=== PATIENT | male | born 1950 | race Caucasian/White ===

== ENCOUNTER → 2016-11-05 | Outpatient (CLI) | payer MEDICARE ==
[~2016-11-05] MED LIST: ALBU17AE23 INH; ASP325T PO; ASP81TEC PO; CEPH-38 PO; CITA20TA4 PO; CLPD75T PO; CRESTOR40 MG PO; CYAN100053 IJ; CYPR4TAB GT; CYPROHEPTADINE HCL PO; DESI25TA PO; DIPH25CA6 PO; DVL250TEC1; FENO145T2 PO; FERR-57 PO; GABA-488 PO; GLYB5TAB3 PO; HUM100VI4 SQ; IBUP400T22 PO; INSU100C4 SQ; INSU100I14 SQ; LAMO200T2 PO; LANS30CA PO; LISI40TA PO; LORA0.5T34 GT; LOVASA PO; LSNP10T PO; LSNP20T PO; LVF500T PO; LVT.1T PO; METFOR850T PO; METO100T2 PO; METO25TA2 PO; MTR500T PO; MULT-963 PO; NF-LOVAZAC PO; NTR.4SL PO; OMEP-10; PARO40TA2 PO; PRD10T PO; RANI300T4 PO; REGADENOSON 0.4 MG/5 ML SYR (LEXISCAN) IV ONE; RNT150T PO; ROSU20TA14 PO; VENL75TA74 PO; VNL37.5T PO
[2016-11-05] MEDS: CATHETER FLUSH 10 ML SYR IV PRN ×2 (11:28→13:02)
[2016-11-05 13:01] VITALS: BP 17/88
--- NOTE | 2016-11-06 01:22 | STRESS TEST ---
DATE OF SERVICE: 11/05/2016 REPORT TITLE: LEXISCAN MYOVIEW STRESS TEST REPORT Baseline heart rate is 96. Baseline blood pressure 170/88. Baseline EKG is sinus rhythm with no ischemic changes. In summary, the patient was injected with 10.97 mCi of technetium-99 Myoview and the resting images were obtained. Then, the patient received 0.4 mg of Lexiscan followed by 30.4 mCi of technetium-99 Myoview. Throughout the test, there were no EKG changes. The resting and stress images were reviewed and compared in the short axis, horizontal long axis, and vertical long axis views. Review of the images showed reversible ischemia involving the mid to apical inferior wall, inferolateral wall. SSS is 13, SDS 7, TID value 0.98. On the gated images, the left ventricle appeared to be in normal size with diffuse left ventricular hypokinesia, calculated ejection fraction 46%. CONCLUSION: 1. The patient tolerated Lexiscan well. 2. Diaphragmatic attenuation with reversible ischemia involving the mid to apical inferior wall and inferolateral segment. 3. Normal left ventricular size with mild diffuse left ventricular hypokinesia, calculated ejection fraction 46%. Job ID: [id number] DocumentID: [id number] Dictated Date: 11/05/2016 17:37:36 Agriculture Professor Date: 11/05/2016 23:39:08 Dictated By: SIERRA LEMA MD
== END ==
LOC: CARD 10:36
PROVIDERS: ATTEND Physician Assistant
DX: I71.4 Abdominal aortic aneurysm, without rupture (principal); I25.10 Atherosclerotic heart disease of native coronary artery without angina pectoris; I65.23 Occlusion and stenosis of bilateral carotid arteries; I10 Essential (primary) hypertension
CPT/HCPCS: 78452; 93017; 93306

== ENCOUNTER 2016-11-12 06:42 | Day surgery (SDC) | payer MEDICARE ==
[2016-11-12] VITALS (14 sets, daily range): BP systolic 119–193; BP diastolic 68–103
[~2016-11-12] VITALS: Ht 170.2 cm; Wt 97.1 kg
[~2016-11-12 06:42] MED LIST changes: -REGADENOSON 0.4 MG/5 ML SYR (LEXISCAN) IV ONE
[2016-11-12] MEDS ORDERED: NS IV 1000 ML 1,000 ML ONE ×2 (06:58→08:20)
[2016-11-12] MEDS ORDERED: HEParin (CATH LAB) 2,000 ML IV ONE (06:58)
[2016-11-12] MEDS: NS IV 1000 ML 1,000 ML IV SCH ×2 (07:28→08:41)
[2016-11-12 07:35] LABS: BILIRUBIN,URINE NEGATIVE (NEGATIVE); KETONES,URINE 2+ (NEGATIVE); LEUKOCYTE ESTERASE ,URINE NEGATIVE (NEGATIVE); MEAN PLATELET VOLUME 9.9 FL (7.4-10.4); NITRITE,URINE NEGATIVE (NEGATIVE); PH,URINE 6 (5-9); PROTEIN,URINE 3+ (NEGATIVE); RED BLOOD COUNT 5.78 10^6/uL (4.35-5.85); UROBILINOGEN,URINE NORMAL (NORMAL); WHITE BLOOD COUNT 7.2 10^3/uL (4.3-11.0)
[2016-11-12] MEDS ORDERED: CYPR4TAB PO (07:40)
[2016-11-12] MEDS ORDERED: GABA-488 PO (07:42)
[2016-11-12] MEDS ORDERED: DESI25TA13 PO (07:42)
[2016-11-12 07:44] LABS: INR 0.9 (0.8-1.4); PROTHROMBIN TIME PATIENT 12.7 SEC (12.2-14.7)
[2016-11-12] MEDS ORDERED: VNL75T PO (07:46)
[2016-11-12] MEDS ORDERED: VNL37.5T PO (07:46)
[2016-11-12] MEDS ORDERED: METF500T4 PO (07:46)
[2016-11-12 07:49] LABS: SQUAMOUS EPITHELIAL CELL,UR 0-2 /HPF
[2016-11-12 07:54] LABS: ALBUMIN 4.8 GM/DL (3.2-4.5); BILIRUBIN,TOTAL 0.5 MG/DL (0.1-1.0); CALCIUM 10.6 MG/DL (8.5-10.1); CREATININE SERUM 1.45 MG/DL (0.60-1.30); POTASSIUM 4.2 MMOL/L (3.6-5.0); TOTAL PROTEIN 8.1 GM/DL (6.4-8.2)
--- NOTE | 2016-11-12 07:54 | Diagnostic Imaging Report ---
Portable AP chest at 727 hours. INDICATION: Preop heart catheter. FINDINGS: Heart size is within normal limits and stable when compared to 07/28/14. The lungs are clear. There is no sign of failure, pneumonia or pleural effusion to suggest an acute abnormality. The calcified nodes in the right hilum seen previously are again evident and no different. The mediastinum is not widened. The osseous structures are intact. IMPRESSION: There is no evidence for active disease. When compared to the prior study, there has been no significant change. Dictated by: Dictated on workstation # [id number]
[2016-11-12] MEDS ORDERED: CETI10TA17 PO (07:55)
[2016-11-12] MEDS ORDERED: CYAN100088 PO (07:55)
[2016-11-12] MEDS ORDERED: LISI40TA PO (07:55)
[2016-11-12] MEDS ORDERED: MELO7.5T46 PO (07:55)
[2016-11-12] MEDS ORDERED: LORA0.5T PO (07:55)
[2016-11-12] MEDS ORDERED: DIPH25CA6 PO (07:55)
[2016-11-12] MEDS ORDERED: LANS15CA5 PO (08:02)
[2016-11-12] MEDS ORDERED: CHOL10008 PO (08:04)
[2016-11-12] MEDS ORDERED: MIDAZOLAM 5 MG/5 ML (VERSED) VIAL ONE (08:05)
[2016-11-12] MEDS ORDERED: fentaNYL INJECTION 100 MCG/2 ML AMP ONE (08:06)
[2016-11-12] MEDS ORDERED: INSU100V16 SQ (08:08)
--- NOTE | 2016-11-12 08:10 | Cardiac Procedure Note-CS/ASA ---
Pre-Procedure Note Pre-Op Procedure Note H&P Reviewed The H&P was reviewed, patient examined and no changes noted. Date H&P Reviewed: Nov 12, 2016 Time H&P Reviewed: 08:10 Conscious Sedation Pre-Proced Time Reviewed: 08:10 ASA Class: 3 Airway Mallampati Classification: (manzanita appropriate class) I. II. III, IV Lungs Heart ASA score ASA 1: a normal healthy patient ASA 2: a patient with a mild systemic disease (mid diabetes, controlled hypertension, obesity x ASA 3: a patient with a severe systemic disease that limits activity (angina , COPD, prior Myocardial infarction) ASA 4: a patient with an incapacitating disease that is a constant threat to life (CHF, renal failure) ASA 5: a moribund patient not expected to survive 24 hrs. (ruptured aneurysm) ASA 6: a declared brain patient whose organs are being harvested. For emergent operations, add the letter E after the classification Grade 3 Sedation Plan: Analgesia, Amnesia, Plan communicated to team members, Discussed options with patient/fam, Discussed risks with patient/fam Note The patient is an appropriate candidate to undergo the planned procedure, sedation, and anesthesia. The patient immediately re-assessed prior to indication. SIERRA LEMA MD Nov 12, 2016 08:10
[2016-11-12] MEDS ORDERED: NS IV 1000 ML 1,000 ML IV SCH (09:22)
--- NOTE | 2016-11-12 09:24 | Discharge Inst-Post CATH ---
Discharge Inst-CATH Post Cardiac Cath D/C Inst Follow Up/Plan Hold Metformin for [address] Carreno's office in 2-4 weeks CARDIAC CATH DISCHARGE INSTRUCTIONS *Hold Metformin for 48 hours post heart cath. ACTIVITY * Go Home directly and rest. * Limit activity of the leg (or wrist if it was used) for 7 days including aerobics, swimming, jogging, bicycling, etc. * Restrict stair-climbing for 7 days if possible, if not, climb up with your non -cath leg, then bring together on the same step. * Avoid lifting, pushing, pulling or excessive movement of the affected extremity for 7 days. * Customary sexual activity may be resumed after 2 days-use caution not to use a position that strains or causes pain to the affected extremity. * No driving for 24 hours. * NO SMOKING. * Avoid straining for bowel movements for 7 days. * Gentle walking on level ground is allowed. * Returning to work will depend on the type of procedure and the results. Your doctor will discuss this with you. CALL YOUR DOCTOR FOR ANY OF THE FOLLOWING: *If bleeding from the puncture site occurs- Apply gentle pressure to site with clean cloth and call your doctor or EMS. * If a knot or lump forms under the skin, increases in size, or causes pain. * If bruising appears to be worsening or moving further down your leg instead of disappearing. * Temperature above 101 F. CARE OF YOUR GROIN INCISION; * Bruising or purple discoloration of the skin near the puncture site is common. * You may shower only, no bathtub bathing for 5 days. Be careful to avoid slipping as your leg may feel stiff. * If a closure device was used on your femoral artery, please see the attached guide regarding care of the device and your leg. * REMOVE the dressing from your groin the next day after your procedure in the shower. CARE OF YOUR WRIST INCISION; * Bruising or purple discoloration of the skin near the puncture site is common. * You may shower. * DO NOT submerge wrist. * Remove dressing in 24 hours. SIERRA CARRENO MD Nov 12, 2016 09:24
[2016-11-12] MEDS ORDERED: PATIENT MAY USE OWN MEDS, ALL PO SCH (09:30)
--- NOTE | 2016-11-12 09:31 | Cardiac Cath Report ---
Cardiac Cath Report Physician (s)/Digital Business Analyst (s) Physician SIERRA LEMA MD Pre-Procedure Diagnosis Pre-Procedure Diagnosis: CAD Post-Procedure Note Procedure Start Date: Nov 12, 2016 Procedure Start Time: 08:40 Name of Procedure: LHC, Abd aortogram, right lower extremity runoff Findings/Procedure Note PROCEDURE NOTE: After explaining the procedure to the patient, all pros and cons were explained, all questions were answered. The patient signed the consent and then she was placed on the cardiac catheterization laboratory. The patient was placed on the cardiac catheterization laboratory. Groin was prepped SL fashion local anesthesia was used. Sheath placed in the right groin with difficulties, the first attempt has failed , I attempted on the left groin without success return to the right groin, I was able to access the artery but had significant difficulties advancing the sheath, I used a long stork wire so far the procedure Crista right and left catheter were used to access the coronary system. Pigtail was used to access the left ventricular cavity. Left ventriculogram was not done to limit contrast exposure Abdominal aortogram was done to evaluate the aneurysm and the stent I did run of through the sheath with his mixing contrast and saline 50/50 and injecting 5 mL of contrast through the sheath and ran it down to the trifurcation At the end of the procedure the sheath was removed, manual pressure applied FINDINGS: Hemodynamics LV 160/15, end-diastolic pressure of 15 Aorta 158/75 mean of 110 ANATOMY: Left Main has mild calcification with normal structures disease Left Anterior Descending , is patent with small vessel disease distally, constipation at the mid LAD probably representing the old stent with mild instent restenosis Left Circumflex , has mild disease nonobstructive disease Right Coronory Artery has patent stent, proximally there is 50 percent stenosis , distally there is 50-60 percent stenosis with small vessel disease distally, medical therapy is recommended LV Gram was not done to limit contrast exposure Aorta evaluation with a pigtail catheter just above the abdominal aortic aneurysm stent, did not show significant abnormality stent is patent with good flow distally, origin of the renal arteries appeared to be normal, bifurcation is normal. Right lower extreme. Runoff done through the sheath with limited amount of contrast, there is mild catheter score to disease down to the trifurcation, brisk flow, no significant obstructive disease CONCLUSION: 1. Patent stent in the right coronary artery with 50 percent stenosis of the proximal right coronary artery 5060 percent stenosis of the distal right coronary artery, small vessel disease distally, nonobstructive disease 2. Patent stent in the mid LAD with calcification with mild in-stent restenosis , mild atherosclerotic disease nonobstructive disease 3. Mild disease in the circumflex artery nonobstructive disease 4. No left ventricular gram was done 5. History of abdominal aortic aneurysm with stent in the abdominal aorta and the bifurcating iliac appeared to be patent, no significant abnormality was noted, limited amount of contrast was used during the angiogram 6. Runoff of the right lower except he was done through the sheath which showed mild disease with brisk flow down to the trifurcation DISCUSSION AND RECOMMENDATION: Medical therapy is recommended no intervention is warranted Anesthesia Type: Conscious Sedation Estimated blood loss (mL): 50 ml Contrast Amount: 58 ml Total Radiation Dose: 748 mGy Post-Procedure Diagnosis Post-operative diagnosis: Coronary artery disease Peripheral arterial disease Abdominal aortic aneurysm Hypertension Diabetes mellitus SIERRA LEMA MD Nov 12, 2016 09:31
--- NOTE | 2016-11-12 09:32 | Clinic Account Progress/Dx ---
Clinic Account Progress/Dx DIAGNOSIS: Date Seen by Provider: Nov 12, 2016 Time Seen by Provider: 09:32 Diagnosis Coronary artery disease Peripheral arterial disease Abdominal aortic aneurysm Hypertension Diabetes mellitus SIERRA LEMA MD Nov 12, 2016 09:32
[2016-11-12] MEDS ORDERED: inSUlin (REGULAR) HUMAN 1 UNIT/0.01 ML (CHARGE PER UNIT) ONE (10:08)
[2016-11-12] MEDS ORDERED: meTOprolol 5 MG/5 ML (LOPRESSOR) VIAL IV ONE (14:30)
== END 2016-11-12 14:50 | disposition home or self-care (01) ==
LOC: CATH 06:42
PROVIDERS: ATTEND Internal Medicine Cardiovascular Disease
DX: I25.10 Atherosclerotic heart disease of native coronary artery without angina pectoris (principal); I71.4 Abdominal aortic aneurysm, without rupture; I70.201 Unspecified atherosclerosis of native arteries of extremities, right leg; I10 Essential (primary) hypertension; E11.9 Type 2 diabetes mellitus without complications; I35.8 Other nonrheumatic aortic valve disorders; E78.2 Mixed hyperlipidemia; F41.8 Other specified anxiety disorders; Z95.820 Peripheral vascular angioplasty status with implants and grafts; Z95.5 Presence of coronary angioplasty implant and graft; Z79.4 Long term (current) use of insulin; Z79.899 Other long term (current) drug therapy; Z87.891 Personal history of nicotine dependence
CPT/HCPCS: 36415; 71010; 75625; 75710; 80053; 80061; 81000; 82962; 85027; 85610; 85730; 87081; 93005; 93458

== ENCOUNTER 2017-09-03 04:25 | Inpatient (IN) | payer MEDICARE ==
[2017-09-03] VITALS (20 sets, daily range): BP systolic 135–197; BP diastolic 72–101
[~2017-09-03] VITALS: Ht 167.6 cm; Wt 90.5 kg
[~2017-09-03 04:25] MED LIST changes: +CETI10TA17 PO; +CHOL10008 PO; +CYAN100088 PO; +CYCL5TAB PO; +CYPR4TAB PO; +DESI25TA13 PO; +HYDR-3812 PO; +INSU100V16 SQ; +LANS15CA5 PO; +LORA0.5T PO; +MELO7.5T46 PO; +METF500T5 PO; +VNL75T PO
[2017-09-03] MEDS ORDERED: RT-ALBUTEROL/IPRATROPIUM 3 ML (DUONEB) VIAL INH ONE ×2 (04:30→05:00)
[2017-09-03] MEDS ORDERED: methylPREDNISolone 125 MG (Solu-MEDROL) VIAL IVP ONE (04:30)
[2017-09-03 04:40] LABS: BASOPHILS # (AUTO) 0.1 10^3/uL (0.0-0.1); BASOPHILS % (AUTO) 1 % (0-10); EOSINOPHILS # (AUTO) 0.3 10^3/uL (0.0-0.3); EOSINOPHILS % (AUTO) 3 % (0-10); HEMATOCRIT 34 % (40-54); HEMOGLOBIN 10.9 G/DL (13.3-17.7); LYMPHOCYTES % (AUTO) 29 % (12-44); MEAN CORPUSCULAR HEMOGLOBIN 24 PG (25-34); MEAN CORPUSCULAR HGB CONC 32 G/DL (32-36); MEAN CORPUSCULAR VOLUME 75 FL (80-99); MEAN PLATELET VOLUME 10.2 FL (7.4-10.4); MONOCYTES # (AUTO) 0.7 X 10^3 (0.0-1.0); MONOCYTES % (AUTO) 7 % (0-12); NEUTROPHILS # (AUTO) 6.3 X 10^3 (1.8-7.8); NEUTROPHILS % (AUTO) 61 % (42-75); PLATELET COUNT 376 10^3/uL (130-400); RED BLOOD COUNT 4.53 10^6/uL (4.35-5.85); RED CELL DISTRIBUTION WIDTH 19.7 % (10.0-14.5); WHITE BLOOD COUNT 10.3 10^3/uL (4.3-11.0)
--- NOTE | 2017-09-03 04:51 | ED General ---
General Chief Complaint: Respiratory Problems Stated Complaint: SOB Nursing Triage Note: pt brought in by ems with complaint of sob. per ems, pts initial sat was 73%. pt diaphoretic upon arrival Nursing Sepsis Screen: No Definite Risk Source of Information: Patient, Old Records Exam Limitations: No Limitations History of Present Illness Date Seen by Provider: Sep 03, 2017 Time Seen by Provider: 04:26 Initial Comments This 67-year-old gentleman presents to the emergency room via EMS in respiratory distress. He has been ill for the past couple of days with dyspnea and increased cough. He denies any fever. He has history of coronary artery disease as well as COPD. EMS reported patient has history of CHF but patient denies any knowledge of CHF. He has an albuterol inhaler but denies any other inhaled medications or nebulizer treatments at home. EMS reported his oxygen saturation on room air was 76 percent. They met him in his vehicle in route to the hospital. EMS reports oxygen saturation improved with high flow oxygen and CPAP up to 85 percent. His oxygen saturation is 80 percent on room air while being transferred over to the ER bed and high flow oxygen. Patient denied any chest pain. Allergies and Home Medications Allergies Coded Allergies: niacin (Unverified Adverse Reaction, Mild, RASH, 07/28/14) Pt stated he got a rash and got flushed feeling. Home Medications Albuterol 17 Gm Aerosol, 17 GM INH BID PRN, (Reported) PRN SOB Aspirin 81 Mg Tabec, 81 MG PO DAILY, (Reported) Cetirizine HCl 10 Mg Tablet, 10 MG PO DAILY PRN for CONGESTION, (Reported) Cholecalciferol (Vitamin D3) 1,000 Unit Tab.chew, 1,000 UNIT PO DAILY, (Reported ) Clopidogrel 75 Mg Tablet, 75 MG PO DAILY, (Reported) Cyanocobalamin (Vitamin B-12) 1,000 Mcg Tablet, 1,000 MCG PO DAILY, (Reported) Cyclobenzaprine HCl 5 Mg Tablet, 5 MG PO TID PRN for SPASMS Prescribed by: SUPRIYA JONES on 07/31/17 0300 Cyproheptadine HCl 4 Mg Tablet, 12 MG PO HS, (Reported) Desipramine HCl 25 Mg Tablet, 25 MG PO BID, (Reported) Diphenhydramine HCl 25 Mg Capsule, 25 MG PO PRN PRN for SLEEP, (Reported) Fenofibrate,Micronized 145 Mg Tablet, 145 MG PO DAILY, (Reported) Gabapentin 300 Mg Capsule, 600 MG PO HS, (Reported) Hydrocodone/Acetaminophen 1 Each Tablet, 1 EACH PO Q6H PRN for PAIN-MODERATE TO SEVERE Prescribed by: SUPRIYA JONES on 07/31/17 0300 Insulin Aspart 100 Unit/1 Ml Insuln.pen, 32 UNIT SQ DAILY IN AM, (Reported) 32 UNITS SQ WITH BREAKFAST Insulin Aspart 100 Unit/1 Ml Susp, 27 UNIT SQ BID, (Reported) Insulin Glargine,Hum.rec.anlog 300 Units/3 Ml Soln, 40 UNITS SQ BID, (Reported) 40 UNITS SQ IN THE MORNING AND EVENING Lamotrigine 200 Mg Tablet, 100 MG PO BID, (Reported) TAKE ONE-HALF (200 MG) TABLET BY MOUTH TWO TIMES A DAY Lansoprazole 15 Mg Capsule.dr, 15 MG PO DAILY, (Reported) Levothyroxine Sodium 100 Mcg Tablet, 100 MCG PO DAILY, (Reported) Lisinopril 40 Mg Tablet, 40 MG PO DAILY, (Reported) Lorazepam 0.5 Mg Tablet, 0.5 MG PO BID PRN for ANXIETY, (Reported) Meloxicam 7.5 Mg Tablet, 7.5 MG PO DAILY, (Reported) Metoprolol Tartrate 100 Mg Tablet, 50 MG PO BID, (Reported) TAKE ONE-HALF TABLET (100 MG) BY MOUTH TWO TIMES A DAY Multivitamin 1 Each Tablet, 1 EACH PO DAILY, (Reported) [place]-3 Acid Ethyl Esters 1 Gm Capsule, 2,000 GM PO BID WITH MEALS, (Reported) Ranitidine Hcl 300 Mg Tablet, 300 MG PO BID, (Reported) Rosuvastatin Calcium 40 Mg Tablet, 20 MG PO HS, (Reported) TAKE ONE-HALF (40 MG) TABLET BY MOUTH AT BEDTIME Venlafaxine HCl 37.5 Mg Tab, 37.5 MG PO DAILY, (Reported) Venlafaxine HCl 75 Mg Tab, 75 MG PO DAILY, (Reported) Patient Home Medication List Home Medication List Reviewed: Yes Review of Systems Constitutional: no symptoms reported EENTM: no symptoms reported Respiratory: see HPI Cardiovascular: no symptoms reported Gastrointestinal: no symptoms reported Genitourinary: no symptoms reported Musculoskeletal: no symptoms reported Skin: no symptoms reported Psychiatric/Neurological: No Symptoms Reported Hematologic/Lymphatic: No Symptoms Reported Immunological/Allergic: no symptoms reported Past Bftxbcn-Dvfdeh-Lbwrqr Hx Past Med/Social Hx: Reviewed and Corrections made Patient Social History Alcohol Use: Denies Use Recreational Drug Use: No Smoking Status: Former Smoker Type Used: Cigarettes Former Smoker, Quit: Nov 12, 2004 Recent Foreign Travel: No Contact w/Someone Who Travel: No Recent Infectious Disease Expo: No Recent Hopitalizations: Yes Immunizations Up To Date Tetanus Booster (TDap): Unknown PED Vaccines UTD: Yes Date of Pneumonia Vaccine: Mar 31, 2011 Date of Influenza Vaccine: Feb 06, 2012 Past Medical History Surgeries: Yes (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 sinus surger) Coronary Stent Respiratory: Yes COPD Cardiac: Yes (2 heart attacks, heart caths-6 stents) Coronary Artery Disease, High Cholesterol, Hypertension Neurological: Yes Neuropathy Reproductive Disorders: No Sexually Transmitted Disease: No HIV/AIDS: No Gastrointestinal: Yes Hiatal Hernia Musculoskeletal: Yes Arthritis Endocrine: Yes Diabetes, Insulin dep, Hypothyroidsim Cataract Loss of Vision: Denies Hearing Impairment: Denies Cancer: No Psychosocial: Yes (flash backs) PTSD Integumentary: Yes (tick bites on stomach and legs) Recent Skin Changes Blood Disorders: Yes Family Medical History FH: defects G8 BROTHER (age-40) Myocardial infarction 18 FATHER, Onset:40's - 50 G8 BROTHER, Onset:50's - 60 Narcolepsy G8 BROTHER Physical Exam Vital Signs Vital Signs - First Documented 09/03/17 04:27 Pulse 96 Resp 32 B/P (MAP) 206/117 (146) Pulse Ox 80 O2 Delivery NIV Bilevel O2 Flow Rate 15.00 FiO2 60 Capillary Refill : Less Than 3 Seconds General Appearance: WD/WN, Mild Distress HEENT: PERRL/EOMI, Normal ENT Inspection Neck: Normal Inspection Respiratory: Accessory Muscle Use, Respiratory Distress, Other (coarse "wet" breath sounds throughout) Cardiovascular: Regular Rate, Rhythm, No Edema, No Murmur Gastrointestinal: Normal Bowel Sounds, Non Tender, Soft Extremity: Normal Capillary Refill, Normal Inspection, No Pedal Edema Neurologic/Psychiatric: Alert, Oriented x3, No Motor/Sensory Deficits, Normal Mood/Affect, school superintendent II-XII Norm as Tested Skin: Normal Color, Warm/Dry Focused Exam Lactate Level 09/03/17 04:32: Lactic Acid Level 7.65*H Lactic Acid Level Laboratory Tests Test 09/03/17 04:32 Lactic Acid Level 7.65 MMOL/L (0.50-2.00) *H Progress/Results/Core Measures Suspected Sepsis Recent Fever Within 48 Hours: No Infection Criteria Present: None New/Unexplained Altered Menta: No Sepsis Screen: No Definite Risk SIRS Temperature: Pulse: 81 Respiratory Rate: 25 Laboratory Tests 09/03/17 04:32: White Blood Count 10.3 Blood Pressure 203 /122 Mean: 146 09/03/17 04:32: Lactic Acid Level 7.65*H Laboratory Tests 09/03/17 04:32: Creatinine 1.09, INR Comment 1.0, Platelet Count 376, Total Bilirubin 0.2 Results/Orders Lab Results Laboratory Tests Test 09/03/17 04:32 09/03/17 05:12 Range/Units White Blood Count 10.3 4.3-11.0 10^3/uL Red Blood Count 4.53 4.35-5.85 10^6/uL Hemoglobin 10.9 L 13.3-17.7 G/DL Hematocrit 34 L 40-54 % Mean Corpuscular Volume 75 L 80-99 FL Mean Corpuscular Hemoglobin 24 L 25-34 PG Mean Corpuscular Hemoglobin Concent 32 32-36 G/DL Red Cell Distribution Width 19.7 H 10.0-14.5 % Platelet Count 376 130-400 10^3/uL Mean Platelet Volume 10.2 7.4-10.4 FL Neutrophils (%) (Auto) 61 42-75 % Lymphocytes (%) (Auto) 29 12-44 % Monocytes (%) (Auto) 7 0-12 % Eosinophils (%) (Auto) 3 0-10 % Basophils (%) (Auto) 1 0-10 % Neutrophils # (Auto) 6.3 1.8-7.8 X 10^3 Lymphocytes # (Auto) 3.0 1.0-4.0 X 10^3 Monocytes # (Auto) 0.7 0.0-1.0 X 10^3 Eosinophils # (Auto) 0.3 0.0-0.3 10^3/uL Basophils # (Auto) 0.1 0.0-0.1 10^3/uL Prothrombin Time 13.6 12.2-14.7 SEC INR Comment 1.0 0.8-1.4 Activated Partial Thromboplast Time 23 L 24-35 SEC Sodium Level 136 135-145 MMOL/L Potassium Level 4.0 3.6-5.0 MMOL/L Chloride Level 99 98-107 MMOL/L Carbon Dioxide Level 19 L 21-32 MMOL/L Anion Gap 18 H 5-14 MMOL/L Blood Urea Nitrogen 19 H 7-18 MG/DL Creatinine 1.09 0.60-1.30 MG/DL Estimat Glomerular Filtration Rate > 60 BUN/Creatinine Ratio 17 Glucose Level 591 *H 70-105 MG/DL Lactic Acid Level 7.65 *H 0.50-2.00 MMOL/L Calcium Level 9.4 8.5-10.1 MG/DL Total Bilirubin 0.2 0.1-1.0 MG/DL Aspartate Amino Transf (AST/SGOT) 25 5-34 U/L Alanine Aminotransferase (ALT/SGPT) 30 0-55 U/L Alkaline Phosphatase 40 40-136 U/L Troponin I < 0.30 <0.30 NG/ML C-Reactive Protein High Sensitivity 2.01 H 0.00-0.50 MG/DL B-Type Natriuretic Peptide 532.4 H <100.0 PG/ML Total Protein 6.9 6.4-8.2 GM/DL Albumin 4.2 3.2-4.5 GM/DL Thyroid Stimulating Hormone (TSH) 3.80 0.35-4.94 UIU/ML Free Thyroxine 0.89 0.70-1.48 NG/DL Blood Gas Puncture Site R RAD Blood Gas Patient Temperature 96.0 Arterial Blood pH 7.34 *L 7.37-7.43 Arterial Blood Partial Pressure CO2 47 H 35-45 MMHG Arterial Blood Partial Pressure O2 76 L 79-93 MMHG Arterial Blood HCO3 25 23-27 MMOL/L Arterial Blood Total CO2 27.0 21.0-31.0 MMOL/L Arterial Blood Oxygen Saturation 95 94-100 % Arterial Blood Base Excess 0.1 -2.5-2.5 MMOL/L Saulo Test YES-POS Blood Gas Ventilator Setting NO Blood Gas Inspired Oxygen 60% BIPAP My Orders Orders - SUPRIYA FLETCHER MD Albuterol/Ipra Inhalation Soln (Duoneb I (09/03/17 04:30) Svn Small Volume Nebulizer (09/03/17 04:30) Methylprednisolone Sod Succ (Solu-Medrol (09/03/17 04:30) Cbc With Automated Diff (09/03/17 04:31) Comprehensive Metabolic Panel (09/03/17 04:31) Lactic Acid Analyzer (09/03/17 04:31) Blood Culture (09/03/17 04:31) Sputum Culture (09/03/17 04:31) Ua Culture If Indicated (09/03/17 04:31) Protime With Inr (09/03/17 04:31) Partial Thromboplastin Time (09/03/17 04:31) Chest 1 View, Ap/Pa Only (09/03/17 04:31) O2 (09/03/17 04:31) Saline Lock/Iv-Start (09/03/17 04:31) Saline Lock/Iv-Start (09/03/17 04:31) Vital Signs Adult Sepsis Patie Q1H (09/03/17 04:31) Remove Rings In Anticipation O (09/03/17 04:31) BNP (09/03/17 04:31) Hs C Reactive Protein (09/03/17 04:31) Troponin I (09/03/17 04:40) Thyroid Stimulating Hormone (09/03/17 04:42) Free T4 (Free Thyroxine) (09/03/17 04:42) Albuterol/Ipra Inhalation Soln (Duoneb I (09/03/17 05:00) Svn Small Volume Nebulizer (09/03/17 04:54) Insulin (Regular) Human (Humulin R (Per (09/03/17 05:15) Arterial Blood Gas (09/03/17 05:04) Ekg Tracing (09/03/17 05:04) Furosemide Injection (Lasix Injection) (09/03/17 05:15) Accucheck Stat ONCE (09/03/17 05:35) Medications Given in ED Current Medications Medications Dose Ordered Sig/Pricilla Route Start Time Stop Time Status Last Admin Dose Admin Albuterol/ Ipratropium 3 ml ONCE ONCE INH 09/03/17 04:30 09/03/17 04:32 DC 09/03/17 04:49 3 ML Albuterol/ Ipratropium 3 ml ONCE ONCE INH 09/03/17 05:00 09/03/17 05:01 DC 09/03/17 04:58 3 ML Furosemide 20 mg ONCE ONCE IVP 09/03/17 05:15 09/03/17 05:16 DC 09/03/17 05:14 20 MG Insulin Human Regular 10 unit ONCE ONCE IV 09/03/17 05:15 09/03/17 05:16 DC 09/03/17 05:14 10 UNIT Methylprednisolone Sodium Succinate 125 mg ONCE ONCE IVP 09/03/17 04:30 09/03/17 04:32 DC 09/03/17 04:39 125 MG Vital Signs/I&O 09/03/17 09/03/17 09/03/17 09/03/17 04:27 04:27 04:43 04:56 Pulse 96 81 80 Resp 32 25 28 B/P (MAP) 206/117 (146) Pulse Ox 80 99 O2 Delivery NIV Bilevel OxyMask O2 Flow Rate 15.00 FiO2 60 09/03/17 04:58 O2 Flow Rate 60.00 98.00 Capillary Refill : Less Than 3 Seconds Blood Pressure Mean: 146 Progress Note #1: Time: 04:50 Progress Note Patient was seen and examined. Respiratory therapy was immediately contacted and initiated CPAP therapy along with a DuoNeb treatment. This improved patient 's oxygen saturation to the mid 90s. Patient appeared much more comfortable and alert after starting BiPAP. Labs and x-ray are pending. Progress Note #2: Time: 05:29 Progress Note Chest x-ray was viewed. There was bilateral basilar atelectasis and probable early venous congestion noted. Patient was given Lasix 20 mg IV for treatment of suspected mild congestive failure. Patient remains on BiPAP at this time and is stable. Insulin 10 units IV was given for initial treatment of hyperglycemia. Case was reviewed with Dr. Lam who agrees with admission to the ICU. Prolonged ER stay is anticipated due to pending availability of ICU beds. Progress Note #3: Time: 06:01 Progress Note Patient received the 10 units of insulin and a fingerstick blood sugar will be repeated in about 30 minutes. Patient remained stable on BiPAP. Care of the patient was transitioned to Dr. Ramon at this time. ECG Initial ECG Impression Date: Sep 03, 2017 Initial ECG Impression Time: 05:12 Initial ECG Rate: 81 Initial ECG Rhythm: Normal Sinus Initial ECG Intervals: Normal Initial ECG Impression: Normal Comment Normal sinus rhythm with borderline nondiagnostic T-wave changes. No abnormal intervals or axis deviation. Diagnostic Imaging Diagonstic Imaging: Xray Plain Films/CT/US/NM/MRI: chest Comments Single view chest x-ray viewed by me and compared with prior. Report not yet available. There appears to be a basilar atelectasis with some mild pulmonary venous congestion. Departure Communication (Admissions) Time/Spoke to Admitting Phy: 05:10 Dr. Brewer Impression Primary Impression: Acute respiratory failure Qualified Codes: J96.01 - Acute respiratory failure with hypoxia Additional Impressions: COPD exacerbation Hyperglycemia Disposition: ADMITTED INPATIENT Condition: Improved Admissions Decision to Admit Reason: Admit from ER (General) Decision to Admit/Date: Sep 03, 2017 Time/Decision to Admit Time: 04:30 Departure-Patient Inst. Referrals: DARIO SHANKS MD (PCP) Primary Care Physician JOSE ADAME (Family) Primary Care Physician SUPRIYA FLETCHER MD Sep 03, 2017 04:51
[2017-09-03 04:53] LABS: PROTHROMBIN TIME PATIENT 13.6 SEC (12.2-14.7)
[2017-09-03 04:59] LABS: ALANINE AMINOTRANSFERASE 30 U/L (0-55); ALBUMIN 4.2 GM/DL (3.2-4.5); ALKALINE PHOSPHATASE 40 U/L (40-136); BILIRUBIN,TOTAL 0.2 MG/DL (0.1-1.0); BUN/CREATININE RATIO 17; CALCIUM 9.4 MG/DL (8.5-10.1); CARBON DIOXIDE 19 MMOL/L (21-32); CHLORIDE 99 MMOL/L (98-107); CREATININE SERUM 1.09 MG/DL (0.60-1.30); GFR ESTIMATED > 60; SODIUM 136 MMOL/L (135-145); TOTAL PROTEIN 6.9 GM/DL (6.4-8.2)
[2017-09-03 05:01] LABS: GLUCOSE 591 MG/DL (70-105)
[2017-09-03] MEDS ORDERED: inSUlin (REGULAR) HUMAN 1 UNIT/0.01 ML (CHARGE PER UNIT) IV ONE (05:15)
[2017-09-03] MEDS ORDERED: FUROSEMIDE 40 MG/4 ML INJ (LASIX) IVP ONE (05:15)
[2017-09-03 05:20] LABS: ABG BASE EXCESS 0.1 MMOL/L (-2.5-2.5); ABG OXYGEN SATURATION 95 % (94-100); ABG PCO2 47 MMHG (35-45); ABG PO2 76 MMHG (79-93); ALLENS TEST YES-POS; INSPIRED O2 60% BIPAP; VENTILATOR NO
[2017-09-03 05:20] LABS: FREE T4 (FREE THYROXINE) 0.89 NG/DL (0.70-1.48)
[2017-09-03 05:22] LABS: ABG PH 7.34 (7.37-7.43)
--- NOTE | 2017-09-03 06:18 | Diagnostic Imaging Report ---
INDICATION: Shortness of air. TECHNIQUE: Single view chest 4:49 AM. CORRELATION STUDY: 11/12/2016 FINDINGS: Heart size stable. Vasculature is increased from prior study. Additionally, there appears to be asymmetric perihilar infiltrates as well as a right infrahilar infiltrate versus edema present. Calcified perihilar granulomas. Calcification of aortic arch. IMPRESSION: 1. Development of mild vascular congestion. Perihilar and right infrahilar infiltrate versus edema. Dictated by: Dictated on workstation # [id number]
--- NOTE | 2017-09-03 08:27 | History & Physical-Hospitalist ---
History of Present Illness HPI/Chief Complaint Pt is [id number] with a PMH of COPD who presented to the ER with CC of SOB. History is somewhat limited by his BiPAP use but he was able to tell me that his symptoms started on 2 days ago. He had been using his inhaler without any improvement. He called EMS at that time who found his oxygen saturations in the 70s and placed him on High Flow NC which brought his sats up to the 80s. He ultimately necessitated BiPAP to stabilize his respiratory status. Source: patient Date Seen 09/03/17 Time Seen by Provider: 07:50 Attending Physician Darlin Brewer Pankaj K MD Referring Physician Date of Admission Sep 03, 2017 at 5:19 am Home Medications & Allergies Home Medications Reviewed patient Home Medication Reconciliation performed by pharmacy medication reconciliations skin care technician and/or nursing. Patients Allergies have been reviewed. Allergies Allergies Coded Allergies niacin (Unverified Adverse Reaction, Mild, RASH, 07/28/14) Pt stated he got a rash and got flushed feeling. Past Elmikmf-Tlrjmc-Fscojp Hx Past Med/Social Hx: Reviewed and Corrections made Patient Social History Alcohol Use: Denies Use Recreational Drug Use: No Smoking Status: Former Smoker Former Smoker, Quit: Nov 12, 2004 Type Used: Cigarettes Recent Foreign Travel: No Contact w/other who traveled: No Recent Hopitalizations: Yes Recent Infectious Disease Expo: No Immunizations Up To Date Tetanus Booster (TDap): Unknown Pediatric: Yes Date of Pneumonia Vaccine: Mar 31, 2011 Date of Influenza Vaccine: Feb 06, 2012 Past Medical History Surgeries: Coronary Stent Respiratory: COPD Cardiac: Coronary Artery Disease, High Cholesterol, Hypertension Neurological: Neuropathy Reproductive: No Sexually Transmitted Disease: No HIV/AIDS: No Gastrointestinal: Hiatal Hernia Musculoskeletal: Arthritis Endocrine: Diabetes, Insulin dep, Hypothyroidsim HEENT: Cataract Loss of Vision: Denies Hearing Impairment: Denies Psychosocial: PTSD Skin/Integumentary: Recent Skin Changes History of Blood Disorders: Yes Family History FH: defects G8 BROTHER (age-40) Myocardial infarction 19 FATHER, Onset:40's - 50 G8 BROTHER, Onset:50's - 60 Narcolepsy G8 BROTHER Review of Systems ROS-Unable to Obtain: limited somewhat by BIPAP Constitutional: No chills, No fever Respiratory: cough; No hemoptysis, No phlegm; short of breath, wheezing Cardiovascular: No chest pain, No edema, No palpitations Gastrointestinal: no symptoms reported Genitourinary: no symptoms reported, hematuria Musculoskeletal: no symptoms reported Skin: no symptoms reported Psychiatric/Neurological: No Symptoms Reported Physical Exam Physical Exam Vital Signs Vital Signs - First Documented 09/03/17 09/03/17 04:27 11:06 Temp 98.4 Pulse 96 Resp 32 B/P (MAP) 206/117 (146) Pulse Ox 80 O2 Delivery NIV Bilevel O2 Flow Rate 15.00 FiO2 60 Capillary Refill : Less Than 3 Seconds General Appearance: No Apparent Distress, Chronically ill HEENT: Other (BiPAP in place) Neck: Normal Inspection Respiratory: Decreased Breath Sounds, Respiratory Distress, Wheezing Cardiovascular: Regular Rate, Rhythm, No Murmur Gastrointestinal: Normal Bowel Sounds, Non Tender, Soft Extremity: No Calf Tenderness, Pedal Edema (trace bilateral) Neurologic/Psychiatric: Alert, Oriented x3, No Motor/Sensory Deficits, Normal Mood/Affect Skin: Normal Color, Warm/Dry; No Mottled Results Results/Procedures Labs Laboratory Tests 09/03/17 04:32 09/03/17 11:58 Patient resulted labs reviewed. Assessment/Plan Admission Diagnosis Acute Respiratory Failure Admission Status: Inpatient Order (span 2 midnights) Reason for Inpatient Admission: ICU level care, BiPAP Diagnosis/Problems Diagnosis/Problems (1) Acute respiratory failure Status: Acute Assessment & Plan: Likely due to COPD exacerbation MAT protocol Pulm consulted, appreciate recs Lactic acidosis likely due to profound hypoxia Not sepsis Received Solu-medrol Continue on prednisone Also got lasix in ER will monitor I/Os Qualifiers: Respiratory failure complication: hypoxia Qualified Codes: J96.01 - Acute respiratory failure with hypoxia (2) COPD exacerbation Status: Acute Assessment & Plan: MAT protocol Pulm consulted Continue Steroids (3) Hypertensive urgency Status: Acute Assessment & Plan: Very elevated on arrival Improved when I was at bedside Monitor Resume home meds (4) Hyperglycemia Status: Acute Assessment & Plan: Likely not DKA- not urine to evaluate for ketones 10 unit insulin given in ER Monitor blood sugars closely as he received Solu-medrol MARY LAU MD Sep 03, 2017 8:27 am
[2017-09-03 10:23] LABS: BILIRUBIN,URINE NEGATIVE (NEGATIVE); CLARITY,URINE CLEAR; COLOR,URINE YELLOW; GLUCOSE, URINE (UA) 4+ (NEGATIVE); KETONES,URINE NEGATIVE (NEGATIVE); LEUKOCYTE ESTERASE ,URINE NEGATIVE (NEGATIVE); NITRITE,URINE NEGATIVE (NEGATIVE); PH,URINE 5 (5-9); PROTEIN,URINE 3+ (NEGATIVE); UROBILINOGEN,URINE NORMAL (NORMAL)
[2017-09-03 10:36] LABS: RBC,URINE RARE /HPF
[2017-09-03 10:37] LABS: BACTERIA,URINE NEGATIVE /HPF; SQUAMOUS EPITHELIAL CELL,UR RARE /HPF
[2017-09-03] MEDS ORDERED: RT-ALBUTEROL SULF 2.5 MG/3 ML PRE-MIX VIAL IH PRN (11:30)
[2017-09-03 12:21] LABS: BUN/CREATININE RATIO 24; CALCIUM 9.6 MG/DL (8.5-10.1); CARBON DIOXIDE 25 MMOL/L (21-32); CHLORIDE 100 MMOL/L (98-107); CREATININE SERUM 0.89 MG/DL (0.60-1.30); GFR ESTIMATED > 60; POTASSIUM 4.1 MMOL/L (3.6-5.0); SODIUM 137 MMOL/L (135-145)
[2017-09-03 12:23] LABS: GLUCOSE 431 MG/DL (70-105)
[2017-09-03] MEDS ORDERED: ANTACID SUSP 30 ML UDC (MYLANTA) PO PRN (14:00)
[2017-09-03] MEDS ORDERED: MILK OF MAGNESIA 400 MG/5 ML 30 ML UDC PO PRN (14:00)
[2017-09-03] MEDS ORDERED: MELATONIN 3 MG TABLET PO PRN (14:00)
[2017-09-03] MEDS ORDERED: BENZONATATE 100 MG (TESSALON) CAPSULE PO PRN (14:00)
[2017-09-03] MEDS ORDERED: ONDANSETRON 4 MG/2 ML (SDV) Z0FRAN IV PRN (14:00)
[2017-09-03] MEDS ORDERED: DICL100G18 TP (14:14)
[2017-09-03] MEDS ORDERED: CLOP75TA28 PO (14:14)
[2017-09-03] MEDS ORDERED: FENO145T2 PO (14:14)
[2017-09-03] MEDS ORDERED: OMEG-105 PO (14:14)
[2017-09-03] MEDS ORDERED: RT-ALBUINH IH (14:14)
[2017-09-03] MEDS ORDERED: RANI300T4 PO (14:14)
[2017-09-03] MEDS ORDERED: VENL-48 PO (14:14)
[2017-09-03] MEDS ORDERED: MUPI22OI2 TP (14:14)
[2017-09-03] MEDS ORDERED: ASPI-983 PO (14:14)
[2017-09-03] MEDS ORDERED: METF500T8 PO (14:14)
[2017-09-03] MEDS ORDERED: LEVO88TA54 PO (14:14)
[2017-09-03] MEDS ORDERED: LAMO200T2 PO (14:14)
[2017-09-03] MEDS ORDERED: GABA-488 PO (14:14)
[2017-09-03] MEDS ORDERED: ROSU40TA21 PO (14:14)
[2017-09-03] MEDS ORDERED: VENL75CA93 PO (14:14)
[2017-09-03] MEDS ORDERED: MULT-166 PO (14:14)
[2017-09-03] MEDS ORDERED: METO100T12 PO (14:14)
[2017-09-03] MEDS ORDERED: IBUP-30 PO (14:14)
[2017-09-03] MEDS ORDERED: INSU100V6 SQ (14:14)
[2017-09-03] MEDS ORDERED: ACETAMINOPHEN 325 MG TABLET/CAPLET (TYLENOL) PO PRN (14:15)
[2017-09-03] MEDS ORDERED: inSUlin ASPART (NovoLOG) 1 UNIT/0.01 ML (CHARGE PER UNIT) SC SCH (14:30)
--- NOTE | 2017-09-03 14:39 | Pulmonary Consultation ---
History of Present Illness History of Present Illness Date of Consultation 09/03/17 14:32 Time Seen by Provider: 09:32 Date of Admission History of Present Illness 67yo with hx of COPD presented to ED via EMS secondary to worsening SOB that started 2 days prior to admission. EMS found his Sp02 to be int the 70's He was using his home INH without improvement in symptoms. Pt was placed on BiPAP upon admission secondary to acute respiratory failure. He has had similar episodes in the past. Allergies and Home Medications Allergies Coded Allergies: niacin (Unverified Adverse Reaction, Mild, RASH, 07/28/14) Pt stated he got a rash and got flushed feeling. Home Medications Albuterol Sulfate 6.7 Gm Hfa.aer.ad, 2 PUFF IH Q4H PRN for SHORTNESS OF BREATH, (Reported) Aspirin 81 Mg Tablet.dr, 81 MG PO DAILY, (Reported) Cetirizine HCl 10 Mg Tablet, 10 MG PO DAILY, (Reported) Cholecalciferol (Vitamin D3) 1,000 Unit Tab.chew, 1,000 UNIT PO 1400, (Reported) Clopidogrel Bisulfate 75 Mg Tablet, 75 MG PO DAILY, (Reported) Cyanocobalamin (Vitamin B-12) 1,000 Mcg Tablet, 1,000 MCG PO 1400, (Reported) Cyproheptadine HCl 4 Mg Tablet, 12 MG PO HS, (Reported) TAKES 3 (4MG) TABLETS Desipramine HCl 25 Mg Tablet, 25 MG PO BID, (Reported) Diclofenac Sodium 100 Gm Gel..gram., 4 GM TP BID PRN for KNEE PAIN, (Reported) Diphenhydramine HCl 25 Mg Capsule, 25 MG PO HS, (Reported) Fenofibrate Nanocrystallized 145 Mg Tablet, 145 MG PO 1400, (Reported) Gabapentin 300 Mg Capsule, 900 MG PO HS, (Reported) TAKES 3 (300MG) CAPSULES Gabapentin 300 Mg Capsule, 300 MG PO DAILY, (Reported) Ibuprofen 200 Mg Tablet, 800 MG PO TID PRN for PAIN-MILD, (Reported) TAKES 4 (200MG) TABLETS Insulin Aspart 100 Unit/1 Ml Susp, 27 UNIT SQ TIDAC, (Reported) Insulin Glargine,Hum.rec.anlog 100 Unit/1 Ml Vial, 40 UNIT SQ BID, (Reported) Lamotrigine 200 Mg Tablet, 100 MG PO BID, (Reported) TAKES 1/2 (200MG) TABLET Lansoprazole 15 Mg Capsule.dr, 30 MG PO DAILY, (Reported) TAKES 2 (15MG) CAPSULES Levothyroxine Sodium 88 Mcg Tablet, 88 MCG PO DAILY, (Reported) Lisinopril 40 Mg Tablet, 40 MG PO DAILY, (Reported) Meloxicam 7.5 Mg Tablet, 7.5 MG PO DAILY, (Reported) Metformin HCl 500 Mg Tab.er.24h, 1,000 MG PO BID, (Reported) TAKES 2 (500MG) TABLETS Metoprolol Tartrate 100 Mg Tablet, 100 MG PO BID, (Reported) Multivitamin with Minerals 1 Each Tablet, 1 TAB PO 1400, (Reported) Mupirocin 22 Gm Oint...g., TP TID PRN for SORES, (Reported) [place]-3 Acid Ethyl Esters 1 Gm Capsule, 2 GM PO BID WITH MEALS, (Reported) TAKES 2 (1GM) CAPSULES Prednisone 20 Mg Tab, 40 MG PO DAILY@0700 Prescribed by: MARY LAU on 09/06/17 0947 Ranitidine HCl 300 Mg Tablet, 300 MG PO BID, (Reported) Rosuvastatin Calcium 40 Mg Tablet, 20 MG PO HS, (Reported) TAKES 1/2 (40MG) TABLET Venlafaxine HCl 37.5 Mg Cap.er.24h, 37.5 MG PO DAILY, (Reported) TAKES ALONG WITH 75MG CAPSULES FOR A TOTAL DAILY DOSE OF 112.5MG Venlafaxine HCl 75 Mg Cap.er.24h, 75 MG PO DAILY, (Reported) TAKES ALONG WITH 37.5MG CAPSULE FOR A TOTAL DAILY DOSE OF 112.5MG Past Wknryce-Tpfxhc-Sgcrug Hx Past Med/Social Hx: Reviewed and Corrections made Patient Social History Alcohol Use: Denies Use Recreational Drug Use: No Smoking Status: Former Smoker Type Used: Cigarettes Former Smoker, Quit: Nov 12, 2004 Recent Foreign Travel: No Contact w/Someone Who Travel: No Recent Infectious Disease Expo: No Recent Hopitalizations: Yes Immunizations Up To Date Tetanus Booster (TDap): Unknown PED Vaccines UTD: Yes Date of Pneumonia Vaccine: Mar 31, 2011 Date of Influenza Vaccine: Feb 06, 2012 Past Medical History Surgeries: Yes (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 sinus surger) Coronary Stent Respiratory: Yes COPD Cardiac: Yes (2 heart attacks, heart caths-6 stents) Coronary Artery Disease, High Cholesterol, Hypertension Neurological: Yes Neuropathy Reproductive Disorders: No Sexually Transmitted Disease: No HIV/AIDS: No Genitourinary: No Gastrointestinal: Yes Hiatal Hernia Musculoskeletal: Yes Arthritis Endocrine: Yes Diabetes, Insulin dep, Hypothyroidsim Are Your Blood Sugars Over 250: Yes Cataract Loss of Vision: Denies Hearing Impairment: Denies Cancer: No Psychosocial: Yes (flash backs) PTSD Integumentary: Yes (tick bites on stomach and legs) Recent Skin Changes Blood Disorders: Yes Family Medical History FH: defects G8 BROTHER (age-40) Myocardial infarction 19 FATHER, Onset:40's - 50 G8 BROTHER, Onset:50's - 60 Narcolepsy G8 BROTHER Review of Systems Time Seen by Provider: 09:34 Exam Exam Vital Signs Date Time Temp Pulse Resp B/P (MAP) Pulse Ox O2 Delivery O2 Flow Rate FiO2 09/03/17 12:30 94 19 192/97 (128) 94 NIV Bilevel 60.00 09/03/17 12:00 94 18 173/94 (120) 94 High Flow N/C 8.00 09/03/17 11:30 96 High Flow N/C 5.00 09/03/17 11:30 86 25 172/75 (107) 97 High Flow N/C 8.00 09/03/17 11:09 88 09/03/17 11:06 98.4 83 10 197/85 (122) 100 High Flow N/C 8.00 09/03/17 11:05 89 17 100 60.00 09/03/17 09:00 77 24 98 60.00 09/03/17 07:04 73 26 98 60.00 09/03/17 04:58 60.00 98.00 09/03/17 04:56 80 28 09/03/17 04:43 81 25 99 09/03/17 04:27 96 32 206/117 (146) 80 OxyMask 15.00 09/03/17 04:27 NIV Bilevel 60 General Appearance: No Apparent Distress, Anxious, Chronically ill, Moderate Distress HEENT: Other (BiPAP in place) Neck: Normal Inspection Respiratory: Decreased Breath Sounds, Respiratory Distress, Wheezing Cardiovascular: Regular Rate, Rhythm, No Murmur Capillary Refill: Less Than 3 Seconds Gastrointestinal: non tender, soft, no organomegaly, no pulsatile mass Extremity: No Calf Tenderness, Pedal Edema (trace bilateral) Neurologic/Psychiatric: Alert, Oriented x3, No Motor/Sensory Deficits, Normal Mood/Affect Skin: Normal Color, Warm/Dry; No Mottled Lymphatic: No Adenopathy Results Lab Laboratory Tests 09/03/17 04:32 09/03/17 11:58 Assessment/Plan Assessment/Plan Acute on chronic respiratory failure -BiPAP QHS and PRN -Titrate oxygen COPDAE -Prednisone, oxygen, Duoneb -Oxygen HTN urgency -monitor HANK DICKSON DO Sep 03, 2017 14:39
[2017-09-03] MEDS: meTOprolol TARTRATE 50 MG (LOPRESSOR) TAB PO SCH ×2 (14:52→20:14)
[2017-09-03] MEDS: inSUlin ASPART (NovoLOG) 1 UNIT/0.01 ML (CHARGE PER UNIT) SC SCH ×2 (14:52→22:06)
[2017-09-03] MEDS: lisINopril 40 MG (PRINIVIL) TABLET PO SCH (14:52)
[2017-09-03] MEDS: FENOFIBRATE 134 MG (LOFIBRA) CAPSULE PO SCH (14:52)
[2017-09-03] MEDS ORDERED: DICLOFENAC 1% GEL 100 GM (VOLTAREN) TUBE TOP PRN (15:00)
[2017-09-03] MEDS: LACTATED RINGERS 1,000 ML IV SCH (16:39)
[2017-09-03] MEDS: RT-ALBUTEROL/IPRATROPIUM 3 ML (DUONEB) VIAL IH SCH ×3 (16:42→21:45)
[2017-09-03] MEDS: inSUlin ASPART (NovoLOG) 1 UNIT/0.01 ML (CHARGE PER UNIT) SQ SCH (18:53)
[2017-09-03] MEDS: ROSUVASTATIN 20 MG (CRESTOR) TABLET PO SCH (20:14)
[2017-09-03] MEDS: GABAPENTIN 300 MG (NEURONTIN) CAP PO SCH (20:14)
[2017-09-03] MEDS: FAMOTIDINE 20 MG (PEPCID) TABLET PO SCH (20:14)
[2017-09-03] MEDS: CYPROHEPTADINE (PERIACTIN) 4 MG TAB PO SCH (20:15)
[2017-09-03] MEDS: DESIPRAMINE 25 MG PO SCH (20:15)
[2017-09-03] MEDS: inSUlin DETERMIR 1 UNIT/0.01 ML (LEVEMIR) CHARGE PER UNIT SQ SCH (22:06)
[2017-09-04] VITALS (24 sets, daily range): BP systolic 130–187; BP diastolic 62–99
[2017-09-04] MEDS: RT-ALBUTEROL/IPRATROPIUM 3 ML (DUONEB) VIAL IH SCH ×6 (02:25→21:18)
[2017-09-04 04:14] LABS: BASOPHILS % (AUTO) 0 % (0-10); EOSINOPHILS # (AUTO) 0.1 10^3/uL (0.0-0.3); EOSINOPHILS % (AUTO) 1 % (0-10); HEMATOCRIT 28 % (40-54); HEMOGLOBIN 9.1 G/DL (13.3-17.7); LYMPHOCYTES # (AUTO) 1.7 X 10^3 (1.0-4.0); LYMPHOCYTES % (AUTO) 20 % (12-44); MEAN CORPUSCULAR HEMOGLOBIN 24 PG (25-34); MEAN CORPUSCULAR HGB CONC 32 G/DL (32-36); MEAN CORPUSCULAR VOLUME 73 FL (80-99); MEAN PLATELET VOLUME 10.1 FL (7.4-10.4); MONOCYTES # (AUTO) 0.8 X 10^3 (0.0-1.0); MONOCYTES % (AUTO) 9 % (0-12); NEUTROPHILS # (AUTO) 6.1 X 10^3 (1.8-7.8); NEUTROPHILS % (AUTO) 71 % (42-75); PLATELET COUNT 315 10^3/uL (130-400); RED BLOOD COUNT 3.86 10^6/uL (4.35-5.85); RED CELL DISTRIBUTION WIDTH 19.5 % (10.0-14.5); WHITE BLOOD COUNT 8.7 10^3/uL (4.3-11.0)
[2017-09-04 04:36] LABS: MAGNESIUM 1.5 MG/DL (1.8-2.4); PHOSPHORUS 3.6 MG/DL (2.3-4.7)
[2017-09-04 04:37] LABS: BUN/CREATININE RATIO 30; CALCIUM 9.4 MG/DL (8.5-10.1); CARBON DIOXIDE 27 MMOL/L (21-32); CHLORIDE 103 MMOL/L (98-107); GFR ESTIMATED > 60; GLUCOSE 103 MG/DL (70-105); POTASSIUM 3.4 MMOL/L (3.6-5.0); SODIUM 141 MMOL/L (135-145)
[2017-09-04] MEDS: POTASSIUM CL 10MEQ/50ML IVPB 50 ML IV SCH (04:55)
[2017-09-04] MEDS: MAGNESIUM 1 GM/100 ML IVPB 100 ML IV SCH ×3 (04:55→06:18)
[2017-09-04] MEDS: KCL 20 MEQ TAB (K-DUR) PO SCH (04:56)
[2017-09-04] MEDS: inSUlin ASPART (NovoLOG) 1 UNIT/0.01 ML (CHARGE PER UNIT) SC SCH ×4 (05:10→20:29)
[2017-09-04 05:14] LABS: ABG BASE EXCESS 5.7 MMOL/L (-2.5-2.5); ABG PCO2 33 MMHG (35-45); ABG PH 7.54 (7.37-7.43); ABG PO2 131 MMHG (79-93); ABG TCO2 29.6 MMOL/L (21.0-31.0)
[2017-09-04 05:17] LABS: ABG OXYGEN SATURATION 99 % (94-100); ALLENS TEST YES-POS; INSPIRED O2 45%; VENTILATOR NO
--- NOTE | 2017-09-04 05:30 | Pulmonary Progress Note ---
Subjective Time Seen by Provider: 05:35 Subjective/Events-last exam Pt still on BIPAP. Sp02 is 100% on 45%. Focused Exam Lactate Level 09/03/17 06:30: Lactic Acid Level 2.26*H 09/03/17 15:05: Lactic Acid Level 4.47*H 09/03/17 17:25: Lactic Acid Level 2.74*H Exam Exam Vital Signs Date Time Temp Pulse Resp B/P (MAP) Pulse Ox O2 Delivery O2 Flow Rate FiO2 09/04/17 04:00 95 High Flow N/C 5.00 09/04/17 04:00 62 18 149/75 (99) 98 NIV Bilevel 45.00 09/04/17 03:49 97.8 09/04/17 03:00 64 26 163/67 (99) 98 NIV Bilevel 45.00 09/04/17 02:25 60 13 99 45.00 09/04/17 02:00 62 20 130/62 (84) 98 NIV Bilevel 45.00 09/04/17 01:00 68 09/04/17 01:00 68 19 158/79 (105) 99 NIV Bilevel 45.00 09/04/17 00:00 67 10 171/99 (123) 98 NIV Bilevel 45.00 09/04/17 00:00 95 High Flow N/C 5.00 09/03/17 23:59 98.2 171/99 (123) 99 NIV Bilevel 45.00 09/03/17 23:00 69 8 160/100 (120) 100 High Flow N/C 5.00 09/03/17 22:00 72 18 140/79 (99) 100 High Flow N/C 5.00 09/03/17 21:45 79 23 100 45.00 09/03/17 21:00 79 25 170/75 (106) 97 High Flow N/C 5.00 09/03/17 20:00 98.3 09/03/17 20:00 84 19 168/74 (105) 96 High Flow N/C 5.00 09/03/17 20:00 95 High Flow N/C 5.00 09/03/17 19:00 81 13 188/91 (123) 97 High Flow N/C 5.00 09/03/17 19:00 98 High Flow N/C 5.00 09/03/17 19:00 81 6/14/18 18:52 High Flow N/C 5.00 09/03/17 18:00 77 18 171/80 (110) 99 NIV Bilevel 45.00 09/03/17 17:00 88 19 180/88 (118) 99 NIV Bilevel 45.00 09/03/17 17:00 97.6 09/03/17 16:00 85 19 156/75 (102) 95 NIV Bilevel 45.00 09/03/17 16:00 95 NIV Bilevel 60 09/03/17 15:35 90 20 94 45.00 09/03/17 15:00 101 31 196/93 (127) 99 NIV Bilevel 45.00 09/03/17 14:30 94 12 165/89 (114) 100 NIV Bilevel 45.00 09/03/17 14:00 93 15 194/101 (132) 100 NIV Bilevel 60.00 09/03/17 13:30 89 13 185/91 (122) 100 NIV Bilevel 60.00 09/03/17 13:15 89 19 96 45.00 09/03/17 13:11 101 09/03/17 13:00 90 14 171/84 (113) 100 NIV Bilevel 60.00 09/03/17 12:30 94 19 192/97 (128) 94 NIV Bilevel 60.00 09/03/17 12:00 94 18 173/94 (120) 94 High Flow N/C 8.00 09/03/17 11:30 96 High Flow N/C 5.00 09/03/17 11:30 86 25 172/75 (107) 97 High Flow N/C 8.00 09/03/17 11:15 NIV Bilevel 60 09/03/17 11:09 88 09/03/17 11:06 98.4 83 10 197/85 (122) 100 High Flow N/C 8.00 09/03/17 11:05 89 17 100 60.00 09/03/17 11:00 90 24 161/85 (146) 98 NIV Bilevel 60.00 09/03/17 09:00 77 24 98 60.00 09/03/17 07:04 73 26 98 60.00 I & O 09/04/17 07:00 Intake Total 780 ml Output Total 1350 ml Balance -570 ml General Appearance: No Apparent Distress, Chronically ill HEENT: Other (BiPAP in place) Neck: Normal Inspection Respiratory: Decreased Breath Sounds, Respiratory Distress, Wheezing Cardiovascular: Regular Rate, Rhythm, No Murmur Capillary Refill: Less Than 3 Seconds Extremity: No Calf Tenderness, Pedal Edema (trace bilateral) Neurologic/Psychiatric: Alert, Oriented x3, No Motor/Sensory Deficits, Normal Mood/Affect Skin: Normal Color, Warm/Dry; No Mottled Results Lab Laboratory Tests 09/03/17 04:32 09/03/17 11:58 09/04/17 03:23 Assessment/Plan Assessment/Plan Acute on chronic respiratory failure -BiPAP QHS and PRN -Trial patient off BiPAP -Titrate oxygen COPDAE -Prednisone, oxygen, Duoneb -Oxygen Metabolic lactic acidosis -Gentle hydration -Pt was on Metformin out patient- currently on hold -repeat LA this AM is pending. Morbid obesity HTN urgency -monitor 233 HANK DICKSON DO Sep 04, 2017 05:30
[2017-09-04] MEDS: LACTATED RINGERS 1,000 ML IV SCH (05:39)
[2017-09-04] MEDS: VENlafaxine XR 75 MG (EFFEXOR XR) CAP PO SCH (06:27)
[2017-09-04] MEDS: VENlafaxine XR 37.5 MG (EFFEXOR XR) CAP PO SCH (06:27)
[2017-09-04] MEDS: predniSONE 20 MG TAB PO SCH (06:28)
[2017-09-04] MEDS: PANTOPRAZOLE 40 MG (PROTONIX) TAB PO SCH (06:28)
[2017-09-04] MEDS: LEVOTHYROXINE 88 MCG (LEVOTHORID) TAB PO SCH (06:28)
[2017-09-04] MEDS: inSUlin ASPART (NovoLOG) 1 UNIT/0.01 ML (CHARGE PER UNIT) SQ SCH ×3 (07:30→17:56)
--- NOTE | 2017-09-04 07:38 | Progress Note-Hospitalist ---
Subjective HPI/CC On Admission Date Seen by Provider: Sep 04, 2017 Time Seen by Provider: 07:37 Pt is [id number] with a PMH of COPD who presented to the ER with CC of SOB. History is somewhat limited by his BiPAP use but he was able to tell me that his symptoms started on 2 days ago. He had been using his inhaler without any improvement. He called EMS at that time who found his oxygen saturations in the 70s and placed him on High Flow NC which brought his sats up to the 80s. He ultimately necessitated BiPAP to stabilize his respiratory status. Subjective/Events-last exam He reports feeling better and breathign more asily but still somewhat short of breath. Still feels wheezing as well. Focused Exam Lactate Level 09/03/17 15:05: Lactic Acid Level 4.47*H 09/03/17 17:25: Lactic Acid Level 2.74*H 09/04/17 06:06: Lactic Acid Level 1.45 Lactic Acid Level Laboratory Tests Test 09/04/17 06:06 Lactic Acid Level 1.45 MMOL/L (0.50-2.00) Objective Exam Vital Signs Vital Signs Date Time Temp Pulse Resp B/P (MAP) Pulse Ox O2 Delivery O2 Flow Rate FiO2 09/04/17 06:48 93 Nasal Cannula 5.00 09/04/17 06:00 70 17 149/76 (100) 09/04/17 03:49 97.8 09/03/17 16:00 60 Capillary Refill : Less Than 3 Seconds General Appearance: No Apparent Distress, Chronically ill Respiratory: No Respiratory Distress, Decreased Breath Sounds, Wheezing Cardiovascular: Regular Rate, Rhythm, No Murmur Gastrointestinal: Normal Bowel Sounds, Non Tender, Soft Extremity: No Calf Tenderness, No Pedal Edema Neurologic/Psychiatric: Alert, Oriented x3, Normal Mood/Affect Results/Procedures Lab Laboratory Tests 09/03/17 11:58 09/04/17 03:23 Patient resulted labs reviewed. Assessment/Plan Assessment and Plan Assess & Plan/Chief Complaint Acute respiratory failure Diagnosis/Problems Diagnosis/Problems (1) Acute respiratory failure Status: Acute Assessment & Plan: Likely due to COPD exacerbation MAT protocol Pulm consulted, appreciate recs Lactic acidosis likely due to profound hypoxia (also on metformin) Not sepsis Continue on prednisone burst Off BiPAP during my exam and breathing comfortably Qualifiers: Respiratory failure complication: hypoxia Qualified Codes: J96.01 - Acute respiratory failure with hypoxia (2) COPD exacerbation Status: Acute Assessment & Plan: MAT protocol Pulm consulted, appreciate recs Continue Steroids as above (3) Hypertensive urgency Status: Acute Assessment & Plan: Improving, trend Resume home meds (4) Hyperglycemia Status: Resolved Assessment & Plan: Fasting BS improved Continue Home basal insulin and SSI (5) Prophylactic measure Assessment & Plan: Lovenox Saline lock ADA diet Clinical Quality Measures DVT/VTE Risk/Contraindication: Risk Factor Score Per Nursin RFS Level Per Nursing on Admit: 4+=Very High MARY LAU MD Sep 04, 2017 7:38 am
[2017-09-04] MEDS: LORATADINE (CLARITIN) 10 MG TAB PO SCH (07:47)
[2017-09-04] MEDS: lisINopril 40 MG (PRINIVIL) TABLET PO SCH (07:47)
[2017-09-04] MEDS: MELOXICAM 7.5 MG (MOBIC) TABLET PO SCH (07:48)
[2017-09-04] MEDS: CLOPIDOGREL 75 MG (PLAVIX) TABLET PO SCH (07:48)
[2017-09-04] MEDS: FAMOTIDINE 20 MG (PEPCID) TABLET PO SCH ×2 (07:48→20:41)
[2017-09-04] MEDS: DESIPRAMINE 25 MG PO SCH ×2 (07:48→20:42)
[2017-09-04] MEDS: GABAPENTIN 300 MG (NEURONTIN) CAP PO SCH ×2 (07:49→20:41)
[2017-09-04] MEDS: meTOprolol TARTRATE 50 MG (LOPRESSOR) TAB PO SCH ×2 (07:49→20:41)
[2017-09-04] MEDS: ASPIRIN E.C. 81 MG (ECOTRIN) TAB PO SCH (07:50)
[2017-09-04] MEDS: inSUlin DETERMIR 1 UNIT/0.01 ML (LEVEMIR) CHARGE PER UNIT SQ SCH ×2 (07:50→20:40)
--- NOTE | 2017-09-04 08:13 | Diagnostic Imaging Report ---
INDICATION: COPD. Comparison made with prior examination 09/03/2017. FINDINGS: Heart size is stable. There is some venous congestion. There is some patchy bibasilar atelectasis and pneumonitis. There is no pleural effusion or pneumothorax. Mediastinum is unremarkable. IMPRESSION: Patchy bibasilar atelectasis and/or pneumonitis. This does appear slightly improved when compared with prior examination. Mild central pulmonary venous congestion. Dictated by: Dictated on workstation # [id number]
[2017-09-04] MEDS ORDERED: KCL 20 MEQ TAB (K-DUR) PO ONE (09:00)
[2017-09-04] MEDS: ENOXAPARIN 40 MG/0.4 ML (LOVENOX) SYR SC SCH (09:36)
[2017-09-04] MEDS: MULTIVIT W/MINERALS TAB (THERAGRAN M) PO SCH (14:59)
[2017-09-04] MEDS: FENOFIBRATE 134 MG (LOFIBRA) CAPSULE PO SCH (14:59)
[2017-09-04] MEDS: NITROGLYCERIN 2% OINT 1 GM UNIT DOSE PACKET TOP PRN (18:53)
[2017-09-04] MEDS: CYPROHEPTADINE (PERIACTIN) 4 MG TAB PO SCH (20:40)
[2017-09-04] MEDS: ROSUVASTATIN 20 MG (CRESTOR) TABLET PO SCH (20:41)
[2017-09-05] VITALS (11 sets, daily range): BP systolic 149–180; BP diastolic 78–104
[2017-09-05] MEDS: NITROGLYCERIN 2% OINT 1 GM UNIT DOSE PACKET TOP PRN ×3 (00:55→23:42)
[2017-09-05] MEDS: RT-ALBUTEROL/IPRATROPIUM 3 ML (DUONEB) VIAL IH SCH ×6 (01:18→22:24)
[2017-09-05 03:57] LABS: BASOPHILS % (AUTO) 0 % (0-10); EOSINOPHILS # (AUTO) 0.1 10^3/uL (0.0-0.3); EOSINOPHILS % (AUTO) 1 % (0-10); HEMATOCRIT 29 % (40-54); HEMOGLOBIN 9.4 G/DL (13.3-17.7); LYMPHOCYTES % (AUTO) 22 % (12-44); MEAN CORPUSCULAR HEMOGLOBIN 24 PG (25-34); MEAN CORPUSCULAR HGB CONC 32 G/DL (32-36); MEAN CORPUSCULAR VOLUME 74 FL (80-99); MEAN PLATELET VOLUME 9.9 FL (7.4-10.4); MONOCYTES # (AUTO) 0.7 X 10^3 (0.0-1.0); MONOCYTES % (AUTO) 7 % (0-12); NEUTROPHILS # (AUTO) 6.5 X 10^3 (1.8-7.8); NEUTROPHILS % (AUTO) 70 % (42-75); PLATELET COUNT 345 10^3/uL (130-400); RED BLOOD COUNT 3.98 10^6/uL (4.35-5.85); RED CELL DISTRIBUTION WIDTH 19.8 % (10.0-14.5); WHITE BLOOD COUNT 9.3 10^3/uL (4.3-11.0)
[2017-09-05 04:22] LABS: BUN/CREATININE RATIO 26; CALCIUM 8.8 MG/DL (8.5-10.1); CARBON DIOXIDE 23 MMOL/L (21-32); CHLORIDE 105 MMOL/L (98-107); CREATININE SERUM 0.82 MG/DL (0.60-1.30); GFR ESTIMATED > 60; GLUCOSE 97 MG/DL (70-105); MAGNESIUM 1.7 MG/DL (1.8-2.4); PHOSPHORUS 3.9 MG/DL (2.3-4.7); POTASSIUM 3.6 MMOL/L (3.6-5.0); SODIUM 140 MMOL/L (135-145)
[2017-09-05] MEDS: POTASSIUM CL 10MEQ/50ML IVPB 50 ML IV SCH (04:47)
[2017-09-05] MEDS: KCL 20 MEQ TAB (K-DUR) PO SCH (04:47)
[2017-09-05] MEDS: inSUlin ASPART (NovoLOG) 1 UNIT/0.01 ML (CHARGE PER UNIT) SC SCH ×4 (04:47→20:48)
[2017-09-05] MEDS: MAGNESIUM 1 GM/100 ML IVPB 100 ML IV SCH ×3 (04:47→06:23)
[2017-09-05] MEDS: LEVOTHYROXINE 88 MCG (LEVOTHORID) TAB PO SCH (06:33)
[2017-09-05] MEDS: VENlafaxine XR 75 MG (EFFEXOR XR) CAP PO SCH (06:33)
[2017-09-05] MEDS: VENlafaxine XR 37.5 MG (EFFEXOR XR) CAP PO SCH (06:33)
[2017-09-05] MEDS: PANTOPRAZOLE 40 MG (PROTONIX) TAB PO SCH (06:33)
[2017-09-05] MEDS: predniSONE 20 MG TAB PO SCH (06:33)
[2017-09-05] MEDS: inSUlin ASPART (NovoLOG) 1 UNIT/0.01 ML (CHARGE PER UNIT) SQ SCH ×3 (06:37→16:47)
--- NOTE | 2017-09-05 07:44 | Progress Note-Hospitalist ---
Subjective HPI/CC On Admission Date Seen by Provider: Sep 05, 2017 Time Seen by Provider: 07:39 Pt is [id number] with a PMH of COPD who presented to the ER with CC of SOB. History is somewhat limited by his BiPAP use but he was able to tell me that his symptoms started on 2 days ago. He had been using his inhaler without any improvement. He called EMS at that time who found his oxygen saturations in the 70s and placed him on High Flow NC which brought his sats up to the 80s. He ultimately necessitated BiPAP to stabilize his respiratory status. Subjective/Events-last exam Pt reports feeling better. Off oxygen. No longer wheezing. Focused Exam Lactate Level 09/03/17 15:05: Lactic Acid Level 4.47*H 09/03/17 17:25: Lactic Acid Level 2.74*H 09/04/17 06:06: Lactic Acid Level 1.45 Objective Exam Vital Signs Vital Signs Date Time Temp Pulse Resp B/P (MAP) Pulse Ox O2 Delivery O2 Flow Rate FiO2 09/05/17 06:16 94 Nasal Cannula 2.50 09/05/17 06:00 70 31 09/05/17 04:00 97.4 09/03/17 16:00 60 Capillary Refill : Less Than 3 Seconds General Appearance: No Apparent Distress, WD/WN Respiratory: Lungs Clear, No Respiratory Distress Cardiovascular: Regular Rate, Rhythm, No Murmur Gastrointestinal: Normal Bowel Sounds, Non Tender, Soft Extremity: No Calf Tenderness, No Pedal Edema Neurologic/Psychiatric: Alert, Oriented x3 Results/Procedures Lab Laboratory Tests 09/05/17 03:44 Patient resulted labs reviewed. Assessment/Plan Assessment and Plan Assess & Plan/Chief Complaint Acute respiratory failure Diagnosis/Problems Diagnosis/Problems (1) Acute respiratory failure Status: Acute Assessment & Plan: Improving- off oxygen at rest Will get home oxygen study Likely due to COPD exacerbation MAT protocol Pulm consulted, appreciate recs Lactic acidosis resolved Continue on prednisone burst Day 2/ Qualifiers: Respiratory failure complication: hypoxia Qualified Codes: J96.01 - Acute respiratory failure with hypoxia (2) COPD exacerbation Status: Acute Assessment & Plan: MAT protocol Pulm consulted, appreciate recs Continue Steroids as above (3) Hypertensive urgency Status: Acute Assessment & Plan: Improving, trend Resume home meds (4) Hyperglycemia Status: Resolved Assessment & Plan: Fasting BS improved Continue Home basal insulin and SSI (5) Prophylactic measure Assessment & Plan: Lovenox Saline lock ADA diet Will PEÑA Garg Clinical Quality Measures DVT/VTE Risk/Contraindication: Risk Factor Score Per Nursin RFS Level Per Nursing on Admit: 4+=Very High MARY LAU MD Sep 05, 2017 07:44
--- NOTE | 2017-09-05 08:28 | Diagnostic Imaging Report ---
Indication: Dyspnea, history of COPD. Discussion: Single portable upright view of the chest was obtained, comparison 09/04/2017. Stable normal heart size. Slightly improved aeration of the lungs as compared to the prior exam which could represent decreasing edema or pneumonia. No pleural fluid or pneumothorax. No osseous abnormality. Impression: 1. Improved aeration of the lungs. Dictated by: Dictated on workstation # [id number]
[2017-09-05] MEDS ORDERED: KCL 20 MEQ TAB (K-DUR) PO ONE (09:00)
[2017-09-05] MEDS: ENOXAPARIN 40 MG/0.4 ML (LOVENOX) SYR SC SCH (10:23)
[2017-09-05] MEDS: meTOprolol TARTRATE 50 MG (LOPRESSOR) TAB PO SCH ×2 (10:23→20:45)
[2017-09-05] MEDS: inSUlin DETERMIR 1 UNIT/0.01 ML (LEVEMIR) CHARGE PER UNIT SQ SCH ×2 (10:24→20:53)
[2017-09-05] MEDS: lisINopril 40 MG (PRINIVIL) TABLET PO SCH (10:24)
[2017-09-05] MEDS: MELOXICAM 7.5 MG (MOBIC) TABLET PO SCH (10:24)
[2017-09-05] MEDS: FAMOTIDINE 20 MG (PEPCID) TABLET PO SCH ×2 (10:25→20:46)
[2017-09-05] MEDS: CLOPIDOGREL 75 MG (PLAVIX) TABLET PO SCH (10:25)
[2017-09-05] MEDS: DESIPRAMINE 25 MG PO SCH ×2 (10:25→20:45)
[2017-09-05] MEDS: LORATADINE (CLARITIN) 10 MG TAB PO SCH (10:25)
[2017-09-05] MEDS: GABAPENTIN 300 MG (NEURONTIN) CAP PO SCH ×2 (10:25→20:45)
[2017-09-05] MEDS: ASPIRIN E.C. 81 MG (ECOTRIN) TAB PO SCH (10:25)
[2017-09-05] MEDS: FENOFIBRATE 134 MG (LOFIBRA) CAPSULE PO SCH (13:37)
[2017-09-05] MEDS: MULTIVIT W/MINERALS TAB (THERAGRAN M) PO SCH (13:37)
[2017-09-05] MEDS: CYPROHEPTADINE (PERIACTIN) 4 MG TAB PO SCH (20:45)
[2017-09-05] MEDS: ROSUVASTATIN 20 MG (CRESTOR) TABLET PO SCH (20:52)
[2017-09-06 00:18] VITALS: BP 190/85
[2017-09-06] MEDS: RT-ALBUTEROL/IPRATROPIUM 3 ML (DUONEB) VIAL IH SCH ×3 (02:20→10:14)
[2017-09-06 03:23] VITALS: BP 183/81
[2017-09-06] MEDS: VENlafaxine XR 37.5 MG (EFFEXOR XR) CAP PO SCH (06:29)
[2017-09-06] MEDS: PANTOPRAZOLE 40 MG (PROTONIX) TAB PO SCH (06:29)
[2017-09-06] MEDS: VENlafaxine XR 75 MG (EFFEXOR XR) CAP PO SCH (06:29)
[2017-09-06] MEDS: LEVOTHYROXINE 88 MCG (LEVOTHORID) TAB PO SCH (06:29)
[2017-09-06] MEDS: predniSONE 20 MG TAB PO SCH (06:30)
[2017-09-06] MEDS: inSUlin ASPART (NovoLOG) 1 UNIT/0.01 ML (CHARGE PER UNIT) SC SCH ×2 (06:42→11:30)
[2017-09-06 09:00] VITALS: BP 167/80
[2017-09-06] MEDS: DESIPRAMINE 25 MG PO SCH (09:19)
[2017-09-06] MEDS: inSUlin ASPART (NovoLOG) 1 UNIT/0.01 ML (CHARGE PER UNIT) SQ SCH ×2 (09:19→12:46)
[2017-09-06] MEDS: inSUlin DETERMIR 1 UNIT/0.01 ML (LEVEMIR) CHARGE PER UNIT SQ SCH (09:19)
[2017-09-06] MEDS: ENOXAPARIN 40 MG/0.4 ML (LOVENOX) SYR SC SCH (09:19)
[2017-09-06] MEDS: CLOPIDOGREL 75 MG (PLAVIX) TABLET PO SCH (09:19)
[2017-09-06] MEDS: meTOprolol TARTRATE 50 MG (LOPRESSOR) TAB PO SCH (09:20)
[2017-09-06] MEDS: lisINopril 40 MG (PRINIVIL) TABLET PO SCH (09:20)
[2017-09-06] MEDS: LORATADINE (CLARITIN) 10 MG TAB PO SCH (09:20)
[2017-09-06] MEDS: ASPIRIN E.C. 81 MG (ECOTRIN) TAB PO SCH (09:20)
[2017-09-06] MEDS: MELOXICAM 7.5 MG (MOBIC) TABLET PO SCH (09:20)
[2017-09-06] MEDS: GABAPENTIN 300 MG (NEURONTIN) CAP PO SCH (09:20)
[2017-09-06] MEDS: FAMOTIDINE 20 MG (PEPCID) TABLET PO SCH (09:20)
--- NOTE | 2017-09-06 09:46 | Discharge Inst-Simple/Standard ---
Discharge Inst-Standard Discharge Medications New, Converted or Re-Newed RX: Transmitted to Pharmacy Patient Instructions/Follow Up Plan of Care/Instructions/FU: Please continue to take your medications as written. Please follow up with your PCP and with Dr Mike as instructed. . Activity as Tolerated: Yes Discharge Diet: Cardiac Diet Return to The Hospital For: Shortness of breath, chest pain, confusion, if you think you are getting worse. Planned Outpatient Orders/Ref. Pneu Vac Indicated: Yes MARY LAU MD Sep 06, 2017 09:46
[2017-09-06] MEDS ORDERED: PRD20T PO (09:47)
--- NOTE | 2017-09-06 10:01 | Discharge Summary-Hospitalist ---
Diagnosis/Chief Complaint Date of Admission Sep 03, 2017 at 5:19 am Date of Discharge Discharge Date: Sep 06, 2017 Admission Diagnosis Acute Respiratory Failure Discharge Diagnosis (1) Acute respiratory failure Status: Acute Assessment & Plan: Resolved Likely due to COPD exacerbation Pulm consulted, appreciate recs Lactic acidosis resolved Continue on prednisone burst Day 3/ Will send with 5 more days to complete burst Home Oxygen study done and requires 2lpm at rest (2) COPD exacerbation Status: Acute Assessment & Plan: MAT protocol Pulm consulted, appreciate recs Continue Steroids as above Will need to follow up with PCP and Dr Mike (3) Hypertensive urgency Status: Acute Assessment & Plan: Improving, trend Resume home meds (4) Hyperglycemia Status: Resolved Assessment & Plan: Fasting BS improved Continue Home basal insulin and SSI (5) Prophylactic measure Assessment & Plan: Lovenox Saline lock ADA diet Will DC Garg Discharge Summary Procedures/Consulations Pulm- Dr Mike Discharge Physical Exam Allergies: Coded Allergies: niacin (Unverified Adverse Reaction, Mild, RASH, 07/28/14) Pt stated he got a rash and got flushed feeling. Vitals & I&Os Vital Signs Date Time Temp Pulse Resp B/P (MAP) Pulse Ox O2 Delivery O2 Flow Rate FiO2 09/06/17 07:02 95 Nasal Cannula 2.00 09/06/17 03:23 98.3 84 19 183/81 (115) 09/03/17 16:00 60 General Appearance: Alert, Oriented X3 Respiratory: Clear to Auscultation Cardiovascular: Regular Rate Hospital Course Pt was admitted for acute respiratory failure due to COPD exacerbation. He responded well to steroids, albuterol, and BiPAP. Pulm was consulted for assistance. His dyspnea improved and he was requesting discharge home on day of discharge. Order was placed for home oxygen per oxygen study done here. He is to follow up with his PCP in 1 week. Labs (last 24 hrs) Laboratory Tests 09/05/17 10:37: Glucometer 158H 09/05/17 14:42: Glucometer 268H 09/05/17 19:56: Glucometer 139H 09/06/17 05:46: Glucometer 85 Microbiology 09/03/17 Blood Culture - Preliminary, Resulted No growth 09/03/17 MRSA Screen - Final, Complete MRSA not isolated Patient resulted labs reviewed. Pending Labs Laboratory Tests 09/06/17 05:46: Glucometer 85 Discussion & Recommendations Discharge Planning: >30 minutes discharge planning Discharge Home Medications: Active Scripts Active Prednisone 20 Mg Tab 40 Mg PO DAILY@0700 2 Days Reported Advil (Ibuprofen) 200 Mg Tablet 800 Mg PO TID PRN TAKES 4 (200MG) TABLETS Metformin HCl ER (Metformin HCl) 500 Mg Tab.er.24h 1,000 Mg PO BID TAKES 2 (500MG) TABLETS Gabapentin 300 Mg Capsule 300 Mg PO DAILY Mupirocin 22 Gm Oint...g. TP TID PRN Voltaren (Diclofenac Sodium) 100 Gm Gel..gram. 4 Gm TP BID PRN Venlafaxine HCl ER (Venlafaxine HCl) 75 Mg Cap.er.24h 75 Mg PO DAILY TAKES ALONG WITH 37.5MG CAPSULE FOR A TOTAL DAILY DOSE OF 112.5MG Venlafaxine HCl ER (Venlafaxine HCl) 37.5 Mg Cap.er.24h 37.5 Mg PO DAILY TAKES ALONG WITH 75MG CAPSULES FOR A TOTAL DAILY DOSE OF 112.5MG Aspirin EC (Aspirin) 81 Mg Tablet.dr 81 Mg PO DAILY Lantus (Insulin Glargine,Hum.rec.anlog) 100 Unit/1 Ml Vial 40 Unit SQ BID Multivitamins with Minerals (Multivitamin with Minerals) 1 Each Tablet 1 Tab PO 1400 Rosuvastatin Calcium 40 Mg Tablet 20 Mg PO HS TAKES 1/2 (40MG) TABLET Ranitidine HCl 300 Mg Tablet 300 Mg PO BID Metoprolol Tartrate 100 Mg Tablet 100 Mg PO BID Lamotrigine 200 Mg Tablet 100 Mg PO BID TAKES 1/2 (200MG) TABLET Langley-3 Acid Ethyl Esters 1 Gm Capsule 2 Gm PO BID WITH MEALS TAKES 2 (1GM) CAPSULES Levothyroxine Sodium 88 Mcg Tablet 88 Mcg PO DAILY Tricor (Fenofibrate Nanocrystallized) 145 Mg Tablet 145 Mg PO 1400 Proventil Hfa (Albuterol Sulfate) 6.7 Gm Hfa.aer.ad 2 Puff IH Q4H PRN Clopidogrel (Clopidogrel Bisulfate) 75 Mg Tablet 75 Mg PO DAILY Novolog (Insulin Aspart) 100 Unit/1 Ml Susp 27 Unit SQ TIDAC Vitamin D3 (Cholecalciferol (Vitamin D3)) 1,000 Unit Tab.chew 1,000 Unit PO 1400 Lansoprazole 15 Mg Capsule.dr 30 Mg PO DAILY TAKES 2 (15MG) CAPSULES Diphenhydramine HCl 25 Mg Capsule 25 Mg PO HS B-12 (Cyanocobalamin (Vitamin B-12)) 1,000 Mcg Tablet 1,000 Mcg PO 1400 Cetirizine HCl 10 Mg Tablet 10 Mg PO DAILY Meloxicam 7.5 Mg Tablet 7.5 Mg PO DAILY Lisinopril 40 Mg Tablet 40 Mg PO DAILY Desipramine HCl 25 Mg Tablet 25 Mg PO BID Gabapentin 300 Mg Capsule 900 Mg PO HS TAKES 3 (300MG) CAPSULES Cyproheptadine HCl 4 Mg Tablet 12 Mg PO HS TAKES 3 (4MG) TABLETS Instructions to patient/family Please see electronic discharge instructions given to patient. Clinical Quality Measures DVT/VTE Risk/Contraindication: Risk Factor Score Per Nursin RFS Level Per Nursing on Admit: 4+=Very High Problem Qualifiers (1) Acute respiratory failure: Respiratory failure complication: hypoxia Qualified Codes: J96.01 - Acute respiratory failure with hypoxia MARY LAU MD Sep 06, 2017 10:01 am
[2017-09-06 13:12] VITALS: BP 167/80
== END 2017-09-06 13:14 | disposition home or self-care (01) | DRG 189 ==
LOC: EDUNIT# 04:25 → ER 04:26 → ICU 05:19 → 4TH 09-05 11:45
PROVIDERS: ADMIT Internal Medicine; ATTEND Internal Medicine
DX: J96.01 Acute respiratory failure with hypoxia (principal); J44.1 Chronic obstructive pulmonary disease with (acute) exacerbation; I16.0 Hypertensive urgency; I11.0 Hypertensive heart disease with heart failure; I50.9 Heart failure, unspecified; E87.2 Acidosis; I25.10 Atherosclerotic heart disease of native coronary artery without angina pectoris; E11.65 Type 2 diabetes mellitus with hyperglycemia; K44.9 Diaphragmatic hernia without obstruction or gangrene; E03.9 Hypothyroidism, unspecified; G62.9 Polyneuropathy, unspecified; F43.10 Post-traumatic stress disorder, unspecified; E66.01 Morbid (severe) obesity due to excess calories; Z68.32 Body mass index [BMI] 32.0-32.9, adult; I25.2 Old myocardial infarction; Z87.891 Personal history of nicotine dependence; Z95.5 Presence of coronary angioplasty implant and graft
CPT/HCPCS: 36415; 36600; 71045; 80048; 80053; 81000; 82805; 82962; 83605; 83735; 83880; 84100; 84439; 84443; 84484; 85025; 85610; 85730; 86141; 87040; 87081; 93005; 94640; 94660; 94664; 94760; 94761; 96374; 96375